=== PATIENT | male | born 1975 | race Caucasian/White ===

== ENCOUNTER 2018-02-25 05:47 | Emergency (ER) | payer OTHER ==
[2018-02-25] MEDS ORDERED: HYDROmorphone 1 MG/ML Syringe IM ONE (06:18)
[2018-02-25] MEDS ORDERED: Ondansetron 4 MG Tab.DIS PO ONE (06:19)
[2018-02-25] MEDS ORDERED: Ibuprofen 600 MG Tab PO ONE (06:24)
--- NOTE | 2018-02-25 06:24 | EDM.PDOC ---
ED HPI GENERAL MEDICAL PROBLEM - General Chief Complaint: Back Pain or Injury Stated Complaint: RIGHT SIDE BACK PAIN Time Seen by Provider: 02/25/18 06:10 Source of Information: Reports: Patient History Limitations: Reports: No Limitations - History of Present Illness INITIAL COMMENTS - FREE TEXT/NARRATIVE: 42-year-old male presents to the ED with acute onset of right upper back pain. He states he was fine when he went to bed but for the last several hours he's been having significant discomfort in his right upper back adjacent to his shoulder blade. No pain with deep breathing. He lifts weights but he has not lifted weights for about 5 days. Pain hard because he is so tired as of late. Pain is constant aching and burning sensation with no relief with aspirin that he took earlier. Onset: Today Onset Date: 02/25/18 Onset Time: 01:30 Duration: Hour(s): Location: Reports: Back Quality: Reports: Ache (Right upper back adjacent to his lower shoulder blade.) , Burning, Stabbing Severity: Moderate (8 out of 10) Improves with: Reports: None Worsens with: Reports: None Context: Denies: Activity, Exercise, Lifting, Sick Contact, Trauma, Other Associated Symptoms: Denies: No Other Symptoms, Confusion, Chest Pain, Cough, cough w sputum, Diaphoresis, Fever/Chills, Headaches, Loss of Appetite, Malaise , Nausea/Vomiting, Rash, Seizure, Shortness of Breath, Syncope, Weakness Upper Back Pain Score (Numeric/FACES): 8 - Related Data Allergies Allergy/AdvReac Type Severity Reaction Status Date / Time No Known Allergies Allergy Verified 02/25/18 05:58 Home Meds: Home Meds metFORMIN HCl [Metformin HCl ER] 500 mg PO BID 02/25/18 [History] oxyCODONE HCl/Acetaminophen [Percocet 5-325 mg Tablet] 1 - 2 each PO Q4H PRN # 16 tablet 02/25/18 [Rx] Past Medical History Musculoskeletal History: Reports: Fracture Endocrine/Metabolic History: Reports: Diabetes, Type II (Currently on diet and metformin daily) Social & Family History - Tobacco Use Smoking Status *Q: Never Smoker - Caffeine Use Caffeine Use: Reports: None - Recreational Drug Use Recreational Drug Use: Yes - Living Situation & Occupation Occupation: Employed ED ROS GENERAL - Review of Systems Review Of Systems: See Below Constitutional: Reports: No Symptoms HEENT: Reports: No Symptoms Respiratory: Reports: No Symptoms Cardiovascular: Reports: No Symptoms Endocrine: Reports: No Symptoms GI/Abdominal: Reports: No Symptoms : Reports: No Symptoms Musculoskeletal: Reports: Back Pain (Involvement of right upper back pain) Skin: Reports: No Symptoms Neurological: Reports: No Symptoms Psychiatric: Reports: No Symptoms Hematologic/Lymphatic: Reports: No Symptoms Immunologic: Reports: No Symptoms ED EXAM, UPPER BACK/NECK PAIN - Physical Exam Exam: See Below Exam Limited By: No Limitations General Appearance: Alert, WD/WN, Mild Distress Nexus Criteria: No: Posterior, Midline Cervical Tenderness, Evidence of Intoxication, Altered Level of Consciousness, Focal Neurological Deficit, Painful Distraction Injuries Cardiovascular/Respiratory: Regular Rate, Rhythm, No M/R/G, Normal Peripheral Pulses, No JVD, No Respiratory Distress Back Exam: Muscle Spasm (Patient has paraspinal muscle spasm in his right upper back from cervical 7 to thoracic 8 level. Maximum point of tenderness over his over rib head 6 and 7 on the right side.), Paraspinal Tenderness. No: Vertebral Tenderness ( Clinically has rib head subluxation causing his pain) Extremities: Normal Inspection (Right side as mentioned above), Normal Range of Motion, Non-Tender, No Pedal Edema Neurologic: No Motor/Sensory Deficits, Alert, Normal Mood/Affect, Oriented x 3 Skin Exam: Normal Color, Warm/Dry Course - Vital Signs Last Recorded V/S: Last Vital Signs Temp 36.1 C 02/25/18 05:54 Pulse 58 L 02/25/18 07:05 Resp 16 02/25/18 07:05 BP 168/105 H 02/25/18 07:05 Pulse Ox 96 02/25/18 07:05 - Orders/Labs/Meds Meds: Medications Discontinued Medications Generic Name Dose Route Start Last Admin Trade Name Freq PRN Reason Stop Dose Admin Hydromorphone HCl 1 mg 02/25/18 06:18 02/25/18 06:27 Dilaudid IM 02/25/18 06:19 1 mg ONETIME ONE Administration Ibuprofen 600 mg 02/25/18 06:24 02/25/18 06:29 Motrin PO 02/25/18 06:25 600 mg ONETIME ONE Administration Ondansetron HCl 4 mg 02/25/18 06:19 02/25/18 06:27 Zofran Odt PO 02/25/18 06:20 4 mg ONETIME ONE Administration - Radiology Interpretation Free Text/Narrative:: 42-year-old male presents to the ED with severe pain in his right upper back. States at been bothering him for the last 4-6 hours. He states lately he's been sleeping very hard and does sleep on his side. He has no known injuries to his right upper back. He lifts weights but has not been lifting weights for 5 days. Emanation reveals a well muscled young man. Examination of his back shows paraspinal muscle spasm on the right side adjacent to the scapula. The nucleus maximal point of tenderness over rib head #6 and 7 and clinically has subluxation of her bed in this area. This is resulted in overlying paraspinal muscle spasm and pain. Lungs are clear heart is sinus vitals are otherwise normal. Dilaudid 1 mg with Zofran 4 mg sublingual and Motrin 800 mg by mouth. 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 He currently resides in [place] and will have somebody come and pick him up from [place] to give him a ride back home. Note will be written to excuse him from the work place for the next 3 days. Departure - Departure Time of Disposition: 07:20 Disposition: Home, Self-Care 01 Condition: Fair Clinical Impression: Acute thoracic back pain Qualifiers: Back pain laterality: right Qualified Code(s): M54.6 - Pain in thoracic spine - Discharge Information *PRESCRIPTION DRUG MONITORING PROGRAM REVIEWED*: No *COPY OF PRESCRIPTION DRUG MONITORING REPORT IN PATIENT SHELIA: No Prescriptions: oxyCODONE HCl/Acetaminophen [Percocet 5-325 mg Tablet] 1 - 2 each PO Q4H PRN # 16 tablet PRN Reason: pain relief. Instructions: Musculoskeletal Pain Referrals: PCP,Not In Area [Primary Care Provider] - Forms: ED Department Discharge, ED Return to Work/School Form Additional Instructions: Evaluation in the emergency room today in regards to acute onset of right upper back pain. Examination reveals paraspinal muscle spasm from the base of your neck cervical 7 level to thoracic 9 vertebra on the right side. Point of maximal tenderness over rib head 6 and 7. Clinically you have a rib head subluxation which means partial dislocation of one of your ribs were comes off of your spine. This likely occurred from slipping on your side did to the world which can pop her rib head out of place. This causes irritation of the underlying nerve and overlying paraspinal muscle spasm to protect the area. This is what causes the significant pain and discomfort. Treatment is ideally visit to a chiropractor to have the rib heads stent into the normal position. This usually relieves the pain totally over. Of 36 hours. In the meantime I've given you and I am injection of pain medicine Dilaudid 1 mg with oral Zofran sublingually for nausea relief. I did write a prescription for pain medicine Percocet tabs 11/10/24 one or 2 every 4-6 hours as needed for pain relief. I would suggest use of Motrin 600 mg every 6 hours to reduce pain and inflammation as well. Of note she cannot drive a motor vehicle while taking Percocet tablets. Hopefully ability to get into a chiropractor today Joseph to have a rib heads adjusted which will provide good relief of pain in the next 36 hours.
== END 2018-02-25 07:32 | disposition home or self-care (01) ==
LOC: JD.ED 05:47
DX: M54.6 Pain in thoracic spine (principal); M62.830 Muscle spasm of back; E11.9 Type 2 diabetes mellitus without complications; Z79.84 Long term (current) use of oral hypoglycemic drugs
CPT/HCPCS: 96372; 99283; A9270; J1170